=== PATIENT | female | born 1970 | race Caucasian/White ===

== ENCOUNTER → 2017-05-24 | Outpatient (CLI) | payer BC ==
--- NOTE | 2017-05-26 12:02 | MG ---
HISTORY: SCREENING Comparison: February 06, 2015 and December 17, 2015 FINDINGS: Bilateral CC and MLO projections of the right and left breast were obtained. Predominantly fatty re placed fibroglandular tissue is seen to be present without suspicious interval change. No significa nt architectural distortion, mass or clustered microcalcifications can be observed to suggest malign malia. No skin thickening or nipple retraction is appreciated. No pathological lymphadenopathy can be identified. IMPRESSION: NO RADIOGRAPHIC EVIDENCE OF MALIGNANCY. ACR CATEGORY I - NEGATIVE EXAM. FOLLOW-UP EXAM 1 YEAR. Diagnostic CAD was utilized and reviewed. * 0 (ZERO) - ASSESSMENT INCOMPLETE; ADDITIONAL IMAGING IS NEEDED. * / (ONE) - NEGATIVE. * 2/II (TWO) - BENIGN FINDINGS. * 3/III (THREE) - PROBABLY BENIGN FINDING; SHORT INTERVAL FOLLOW-UP SUGGESTED. * 4/IV (FOUR) - SUSPICIOUS ABNORMALITY; BIOPSY SHOULD BE CONSIDERED. * 5/V (FIVE) - HIGHLY SUSPICIOUS OF MALIGNANCY; BIOPSY SHOULD BE PERFORMED. A NEGATIVE X-RAY REPORT SHOULD NOT DELAY BIOPSY IF A DOMINANT OR CLINICALLY SUSPICIOUS MASS IS PRESENT; 4 TO 8 PERCENT OF CANCERS ARE NOT IDENTIFIED BY X-RAY. A NEG ATIVE REPORT MAY REINFORCE THE CLINICAL IMPRESSION. ADENOSIS AND DENSE BREASTS MAY OBSCURE AN UNDER LYING NEOPLASM. Reported By:
== END ==
LOC: RAD 08:26
PROVIDERS: ATTEND Nurse Practitioner Family
DX: Z12.31 Encounter for screening mammogram for malignant neoplasm of breast (principal)
CPT/HCPCS: 77067

== ENCOUNTER → 2017-08-18 | Outpatient (CLI) | payer BC ==
--- NOTE | 2017-08-18 10:09 | US ---
Right upper quadrant sonogram Indication: Abnormal liver function test with previous cholecystectomy Technique: Real-time grayscale or Doppler imaging of the right upper quadrant was performed using a t ransabdominal transducer. Findings: The liver measures 14.1 cm in greatest dimension, echogenicity of the liver parenchyma is h omogeneous. No focal hepatic lesion identified. No intrahepatic or extrahepatic bile duct dilatation with the common bile duct measuring 7 mm. There is no perihepatic free fluid. Prior cholecystectomy i s noted. Normal color Doppler flow is noted within the portal vein. The right kidney demonstrates no evidence of nephrolithiasis or hydronephrosis. Right kidney measures approximately 9.3 cm. No sonogra phic abnormality identified within visualized portions of the pancreatic head. Impression: No sonographic abnormality within the right upper quadrant. Reported By:
== END ==
LOC: RAD 08:34
PROVIDERS: ATTEND Internal Medicine Gastroenterology
DX: R94.5 Abnormal results of liver function studies (principal)
CPT/HCPCS: 76705